=== PATIENT | female | born 1980 | race Caucasian/White ===

== ENCOUNTER 2017-01-27 07:41 | Emergency (ER) | payer MEDICAID ==
[~2017-01-27] VITALS: Ht 152.4 cm; Wt 59.1 kg
[~2017-01-27 07:41] MED LIST: AMOXICILLIN 50500 MG PO; BCP TD; CELEXA 20MG20 MG/TAB PO; DESYREL 50MG50 MG PO; ESCITALOPRAM; IBU400 MG PO; KLONOPIN 0.5MG0.5 MG PO; KLONOPIN 1MG1 MG PO; LO/OVRAL; NO HOME MEDICATIONS; PRENATAL1 TA1 PO; ULTRAM 50MG TAB50 MG PO; VALIUM 5MG T5 MG/TAB PO; ZOLOFT 100MG100 MG PO
[2017-01-27 07:53] VITALS: BP 137/80; PULSE 88; TEMP 97.9
[2017-01-27] MEDS ORDERED: VERELAN240 MG PO (09:02)
[2017-01-27] MEDS ORDERED: BLISOVI 24 FE1 EACH PO (09:03)
[2017-01-27] MEDS ORDERED: VENLAFAXINE225 MG PO (09:04)
[2017-01-27] MEDS ORDERED: MAG-OX 400400 MG/TAB PO (09:04)
[2017-01-27] MEDS ORDERED: FOLIC ACID 11 MG/TA1 PO (09:05)
[2017-01-27] MEDS ORDERED: MOBIC15 MG PO (09:05)
[2017-01-27] MEDS ORDERED: METHOTREXA2.5 MG/TAB PO (09:06)
[2017-01-27] MEDS ORDERED: PREDNISONE20 MG PO (09:06)
== END 2017-01-27 09:38 | disposition home or self-care (01) ==
LOC: COL.ER 07:41
DX: M84.374A Stress fracture, right foot, initial encounter for fracture (principal); F32.9 Major depressive disorder, single episode, unspecified; F43.10 Post-traumatic stress disorder, unspecified; I10 Essential (primary) hypertension; Z98.890 Other specified postprocedural states; X50.0XXA Overexertion from strenuous movement or load, initial encounter; Y93.01 Activity, walking, marching and hiking

== ENCOUNTER 2017-06-05 10:36 | Day surgery (SDC) | payer MEDICAID ==
[~2017-06-05] VITALS: Ht 152.4 cm; Wt 63.0 kg
[~2017-06-05 10:36] MED LIST changes: +BLISOVI 24 FE1 EACH PO; +FOLIC ACID 11 MG/TA1 PO; +MAG-OX 400400 MG/TAB PO; +METHOTREXA2.5 MG/TAB PO; +MOBIC15 MG PO; +PREDNISONE20 MG PO; +VENLAFAXINE225 MG PO; +VERELAN240 MG PO
[2017-06-05 10:59] VITALS: BP 116/77; PULSE 86; TEMP 98.9
[2017-06-05] MEDS ORDERED: EFFEXOR-XR150 MG PO (11:15)
[2017-06-05 13:17] VITALS: BP 123/79; PULSE 101; TEMP 98.1
[2017-06-05 13:30] VITALS: BP 111/76; PULSE 91
[2017-06-05 13:45] VITALS: BP 113/100; PULSE 85
[2017-06-05] MEDS ORDERED: PRILOSEC 20MG20 MG PO (13:49)
[2017-06-05] MEDS ORDERED: IMODIUM 2MG CAPS2 MG PO (13:50)
[2017-06-05 14:00] VITALS: BP 121/77; PULSE 86
[2017-06-05 14:23] VITALS: BP 118/75; PULSE 81
== END 2017-06-05 14:50 | disposition home or self-care (01) ==
LOC: SDCO 10:36
DX: K21.0 Gastro-esophageal reflux disease with esophagitis (principal); M30.0 Polyarteritis nodosa; K25.7 Chronic gastric ulcer without hemorrhage or perforation; F41.9 Anxiety disorder, unspecified; F32.9 Major depressive disorder, single episode, unspecified; R19.7 Diarrhea, unspecified
CPT/HCPCS: OP; J2250; J2405; J3010; J7030

== ENCOUNTER → 2017-09-01 | Outpatient (CLI) | payer MEDICAID ==
[~2017-09-01] MED LIST changes: +EFFEXOR-XR150 MG PO; +IMODIUM 2MG CAPS2 MG PO; +PRILOSEC 20MG20 MG PO
[2017-09-01 11:28] LABS: HEMATOCRIT 37.2 % (37.0-47.0); HEMOGLOBIN 12.3 g/dl (12.5-16.0); MEAN CELL VOLUME 98 fl (80.0-100.0); MEAN CORPUSCULAR HEMOGLOBIN 33 pg (27.0-31.0); MEAN CORPUSCULAR HGB CONC 33 g/dl (33.0-37.0); PLATELET COUNT 455 K/mm3 (130-400); RED BLOOD COUNT 3.79 M/mm3 (4.10-5.30); REDCELL DISTRIBUTION WIDTH-CV 14.8 % (11.5-14.5)
[2017-09-01 11:38] LABS: ALBUMIN 4.1 gm/dL (3.5-5.0); BILIRUBIN,TOTAL 0.6 mg/dL (0.0-1.0); C-REACTIVE PROTEIN 0.8 mg/dL (0.0-0.9); CALCIUM 9.2 mg/dL (8.4-10.2); CREATININE, serum 0.67 mg/dL (0.52-1.25); POTASSIUM 4.3 mmol/L (3.4-5.0); TOTAL PROTEIN 6.9 gm/dL (6.4-8.2)
[2017-09-01 11:55] LABS: BAND 7 % (0-10); BASOPHIL 2 % (0-2); EOSINOPHIL 1 % (0-4); LYMPHOCYTE 30 % (20.0-51.0); NEUTROPHILS 56 % (42.0-75.2); PLATELET ESTIMATE INCREASED (NORMAL); STOMATOCYTE 3+
[2017-09-01 11:56] LABS: POLYCHROMASIA 1+
[2017-09-01 11:58] LABS: ERYTHROCYTE SEDIMENTATION RATE 7 mm/hr (0-20)
== END ==
LOC: COL.LAB 09:45
PROVIDERS: Family Medicine
DX: I77.6 Arteritis, unspecified (principal)

== ENCOUNTER → 2018-01-27 | Outpatient (CLI) | payer MEDICAID | LOC: COL.RAD 07:47 | DX: G37.9 Demyelinating disease of central nervous system, unspecified (principal); R29.6 Repeated falls | CPT/HCPCS: A9585 ==

== ENCOUNTER 2018-05-03 09:34 | Emergency (ER) | payer MEDICAID ==
[~2018-05-03] VITALS: Ht 152.4 cm; Wt 61.4 kg
[2018-05-03 09:41] VITALS: TEMP 99.2
[2018-05-03] MEDS ORDERED: CEFTIN500 MG PO (10:22)
[2018-05-03 10:30] VITALS: BP 135/90; PULSE 92
== END 2018-05-03 10:30 | disposition home or self-care (01) ==
LOC: COL.ER 09:34
DX: J02.9 Acute pharyngitis, unspecified (principal); R59.0 Localized enlarged lymph nodes; M30.0 Polyarteritis nodosa

== ENCOUNTER → 2018-08-19 | Outpatient (CLI) | payer MEDICAID ==
[~2018-08-19] MED LIST changes: +CEFTIN500 MG PO
== END ==
LOC: MC.RAD 10:57
DX: N63.11 Unspecified lump in the right breast, upper outer quadrant (principal)

== ENCOUNTER → 2018-08-23 | Outpatient (CLI) | payer MEDICAID | LOC: MC.RAD 06:56 | DX: N63.11 Unspecified lump in the right breast, upper outer quadrant (principal); N63.22 Unspecified lump in the left breast, upper inner quadrant; N63.12 Unspecified lump in the right breast, upper inner quadrant; Z98.82 Breast implant status ==

== ENCOUNTER → 2019-02-24 | Outpatient (CLI) | payer MEDICAID | LOC: MC.RAD 06:58 | DX: D24.2 Benign neoplasm of left breast (principal); D24.1 Benign neoplasm of right breast ==

== ENCOUNTER 2019-03-11 04:42 | Emergency (ER) | payer MEDICAID ==
[~2019-03-11] VITALS: Ht 152.4 cm; Wt 56.8 kg
[2019-03-11 04:52] VITALS: BP 117/77; PULSE 87; TEMP 98.4
[2019-03-11] MEDS ORDERED: ADDERALL5 MG PO (05:00)
[2019-03-11 05:40] LABS: COLLECTION METHOD CLEAN CATCH
[2019-03-11 05:50] LABS: MUCOUS Present /lpf; PH 6 (5-8); URINE APPEARANCE Clear; URINE BACTERIA None Seen /hpf; URINE BILIRUBIN Negative (NEGATIVE); URINE BLOOD Negative (NEGATIVE); URINE COLOR Yellow; URINE GLUCOSE Negative (NEGATIVE); URINE KETONE Negative (NEGATIVE); URINE LEUKOCYTE ESTERASE Negative (NEGATIVE); URINE NITRATE Negative (NEGATIVE); URINE PROTEIN(semi-quant) Negative (NEGATIVE); URINE RBC 0-2 /hpf
== END 2019-03-11 06:40 | disposition home or self-care (01) ==
LOC: COL.ER 04:42
PROVIDERS: Emergency Medicine
DX: S00.03XA Contusion of scalp, initial encounter (principal); S20.212A Contusion of left front wall of thorax, initial encounter; F43.10 Post-traumatic stress disorder, unspecified; R40.2412 Glasgow coma scale score 13-15, at arrival to emergency department; W10.9XXA Fall (on) (from) unspecified stairs and steps, initial encounter; Y92.009 Unspecified place in unspecified non-institutional (private) residence as the place of occurrence of the external cause

== ENCOUNTER 2019-03-20 13:11 | Emergency (ER) | payer MEDICAID ==
[~2019-03-20] VITALS: Ht 152.4 cm; Wt 56.8 kg
[~2019-03-20 13:11] MED LIST changes: +ADDERALL5 MG PO
[2019-03-20 13:19] VITALS: TEMP 98.2
[2019-03-20] MEDS ORDERED: KLONOPIN 1MG1 MG PO (13:26)
[2019-03-20] MEDS ORDERED: BLISOVI FE 1.51 EACH PO (13:28)
[2019-03-20] MEDS ORDERED: RITUXAN HY1400 MG/11 SQ (13:30)
[2019-03-20 16:10] VITALS: BP 122/81; PULSE 107
== END 2019-03-20 16:10 | disposition home or self-care (01) ==
LOC: COL.ER 13:11
DX: F07.81 Postconcussional syndrome (principal); Z86.79 Personal history of other diseases of the circulatory system; W10.9XXA Fall (on) (from) unspecified stairs and steps, initial encounter